=== PATIENT | male | born 1980 | race African-American/Black ===

== ENCOUNTER 2024-04-12 18:33 | Emergency (ER) | payer MEDICAID ==
[~2024-04-12] VITALS: Ht 193 cm; Wt 82.0 kg
[2024-04-12 18:56] VITALS: BP 172/80; PULSE 112; RESP 16; TEMP 99.2; O2SAT 99
[2024-04-12] MEDS ORDERED: GABA-529 MT (23:45)
[2024-04-12] MEDS ORDERED: BO1 TP (23:45)
== END 2024-04-13 01:03 | disposition home or self-care (01) ==
LOC: ER 18:33
DX: M79.604 Pain in right leg (principal); M79.605 Pain in left leg; G62.9 Polyneuropathy, unspecified; D64.9 Anemia, unspecified
CPT/HCPCS: 16000; 99283

== ENCOUNTER 2024-04-13 02:23 | Emergency (ER) | payer MEDICAID ==
[~2024-04-13] VITALS: Ht 180.3 cm; Wt 80.0 kg
[~2024-04-13 02:23] MED LIST: BO1 TP; GABA-529 MT
[2024-04-13 02:35] VITALS: O2SAT 98
[2024-04-13 02:40] VITALS: BP 130/93; PULSE 95; RESP 16; TEMP 98.7; O2SAT 99
== END 2024-04-13 15:36 | disposition home or self-care (01) ==
LOC: ER 02:34
DX: F41.9 Anxiety disorder, unspecified (principal); Z79.899 Other long term (current) drug therapy
CPT/HCPCS: 99281